=== PATIENT | male | born 1935 | race Two or more races ===

== ENCOUNTER 2021-04-16 11:03 | Inpatient (IN) | payer MEDICARE, MEDICAID ==
[~2021-04-16] VITALS: Ht 162.6 cm; Wt 68.8 kg
[2021-04-16] MEDS ORDERED: SODIUM CHLORIDE 0.9% 500 ML IV ONE (11:30)
[2021-04-16 12:15] LABS: Basophils # (auto) 0 10 ^3/uL (0-0.2); Eosinophils # (auto) 0 10 ^3/uL (0-0.8); Eosinophils % (auto) 0.1 % (0.0-7.0); Hematocrit 34.8 % (41.0-53.0); Lymphocytes # (auto) 0.6 10 ^3/uL (0.4-5.4); Lymphocytes % (auto) 9.7 % (10.0-50.0); Monocytes # (auto) 0.5 10 ^3/uL (0-1.3); Nucleated Red Blood Cells % 0.3 %
[2021-04-16 12:17] LABS: Basophils % (auto) 0.6 % (0.0-2.0); Hemoglobin 11.9 g/dL (13.5-17.5); Mean Corpuscular Hemoglobin 33.6 pg (28.0-32.0); Mean Corpuscular Hgb Conc. 34.1 g/dL (32.0-36.0); Mean Corpuscular Volume 98.5 fL (80.0-100.0); Monocytes % (auto) 7.9 % (0.0-12.0); Neutrophils # (auto) 4.8 10 ^3/uL (1.6-8.6); Neutrophils % (auto) 81.7 % (37.0-80.0); Red Blood Cells 3.53 10^6/uL (4.5-5.90); Red Cell Distribution Width 12.7 % (11.8-14.3); White Blood Cell 5.9 10^3/uL (4.4-10.8)
[2021-04-16 12:22] LABS: Albumin 2.9 g/dL (3.4-5.0); Anion Gap 15 (5-15); Blood Urea Nitrogen 23 mg/dL (7-18); Carbon Dioxide 19 mmol/L (21-32); Chloride 106 mmol/L (98-107); Glucose 110 mg/dL (74-106); Magnesium 2.8 mg/dL (1.6-2.6); Potassium 3.1 mmol/L (3.5-5.1); Sodium 140 mmol/L (136-145)
[2021-04-16 12:29] LABS: Alanine Aminotransferase 36 U/L (16-61); Alkaline Phosphatase 33 U/L (45-117); Aspartate Aminotransferase 34 U/L (15-37); BUN/Creatinine Ratio 29.9; Bilirubin, Total 1.2 mg/dL (0.2-1.0); Blood Alcohol < 3.0 mg/dL (0-5); GFR African American 124 mL/min; GFR Non-African American 102 mL/min; Total Protein 6.2 g/dL (6.4-8.2)
[2021-04-16] MEDS ORDERED: ONDANSETRON HCL 4 MG/2 ML VIAL IV PRN (16:45)
[2021-04-16] MEDS ORDERED: DOCUSATE SOD 100 MG CAP PO PRN (16:45)
[2021-04-16] MEDS ORDERED: MORPHINE SULFATE 4 MG/ML SYR/VIAL IV PRN (16:45)
[2021-04-16] MEDS ORDERED: NITROGLYCERIN 0.4 MG SL TAB SL PRN (16:45)
[2021-04-16] MEDS ORDERED: MORPHINE SULFATE INJECTION 2 MG/ML SYRG IV PRN (16:45)
[2021-04-16] MEDS ORDERED: ACETAMINOPHEN 325 MG TAB PO PRN (16:45)
[2021-04-16] MEDS ORDERED: HYDROcodone-ACET 5/325MG TAB PO PRN (16:45)
[2021-04-16] MEDS: POTASSIUM CHL 20MEQ/100ML 100 ML IV SCH ×2 (17:00→20:46)
[2021-04-16] MEDS: PANTOPRAZOLE 40 MG/10 ML VIAL INJ IV SCH (21:13)
[2021-04-16 22:50] VITALS: BP 104/56
[2021-04-16 23:34] VITALS: BP 104/56
[2021-04-17 05:00] VITALS: BP 100/61
[2021-04-17 06:40] LABS: Albumin 2.4 g/dL (3.4-5.0); BUN/Creatinine Ratio 22.7; Bilirubin, Total 1.2 mg/dL (0.2-1.0); Calcium 8.3 mg/dL (8.5-10.1); Total Protein 5.1 g/dL (6.4-8.2)
[2021-04-17 06:41] LABS: Basophils # (auto) 0 10 ^3/uL (0-0.2); Basophils % (auto) 0.1 % (0.0-2.0); Eosinophils # (auto) 0 10 ^3/uL (0-0.8); Eosinophils % (auto) 0.1 % (0.0-7.0); Hematocrit 30.2 % (41.0-53.0); Hemoglobin 10.2 g/dL (13.5-17.5); Lymphocytes # (auto) 0.1 10 ^3/uL (0.4-5.4); Lymphocytes % (auto) 4.3 % (10.0-50.0); Mean Corpuscular Hemoglobin 34.2 pg (28.0-32.0); Mean Corpuscular Hgb Conc. 33.7 g/dL (32.0-36.0); Mean Corpuscular Volume 101.4 fL (80.0-100.0); Monocytes # (auto) 0 10 ^3/uL (0-1.3); Monocytes % (auto) 0.6 % (0.0-12.0); Neutrophils # (auto) 2.5 10 ^3/uL (1.6-8.6); Neutrophils % (auto) 94.9 % (37.0-80.0); Red Blood Cells 2.98 10^6/uL (4.5-5.90); Red Cell Distribution Width 12.8 % (11.8-14.3); White Blood Cell 2.7 10^3/uL (4.4-10.8)
[2021-04-17 08:02] LABS: Potassium 2.4 mmol/L (3.5-5.1)
[2021-04-17 09:00] VITALS: BP 94/55
[2021-04-17] MEDS: POTASSIUM CHL 20MEQ/100ML 100 ML IV SCH ×2 (09:53→12:00)
[2021-04-17] MEDS: PANTOPRAZOLE 40 MG/10 ML VIAL INJ IV SCH (09:54)
[2021-04-17] MEDS: ENOXAPARIN SOD 40 MG/0.4 ML SYRINGE SC SCH (09:54)
[2021-04-17 13:00] VITALS: BP 100/52
[2021-04-17 16:08] LABS: BUN/Creatinine Ratio 14.6; Calcium 8.4 mg/dL (8.5-10.1)
[2021-04-17 17:00] VITALS: BP 116/54
[2021-04-17 17:47] LABS: Potassium 2.7 mmol/L (3.5-5.1)
[2021-04-17] MEDS ORDERED: POTASSIUM CHL 20MEQ/100ML 100 ML IV ONE (21:30)
[2021-04-17] MEDS ORDERED: SODIUM BICARBONATE 8.4 % INJ 50ML VIAL IV ONE (22:24)
[2021-04-17] MEDS: SODIUM CHLORIDE 0.9% 1,000 ML IV SCH (22:24)
[2021-04-18] MEDS ORDERED: POTASSIUM CHL 20MEQ/100ML 200 ML IV ONE (01:19)
[2021-04-18] MEDS: SODIUM CHLORIDE 0.9% 1,000 ML IV SCH ×2 (03:30→08:09)
[2021-04-18] MEDS ORDERED: SODIUM CHLORIDE 0.9% 500 ML IV ONE (06:45)
[2021-04-18 09:00] VITALS: BP 105/41
[2021-04-18] MEDS: ENOXAPARIN SOD 40 MG/0.4 ML SYRINGE SC SCH (09:49)
[2021-04-18] MEDS: PANTOPRAZOLE 40 MG/10 ML VIAL INJ IV SCH (09:49)
[2021-04-18 11:59] LABS: Hemoglobin 9.6 g/dL (13.5-17.5)
[2021-04-18 12:01] LABS: Hematocrit 28.2 % (41.0-53.0); Mean Corpuscular Hemoglobin 34.1 pg (28.0-32.0); Mean Corpuscular Hgb Conc. 34.1 g/dL (32.0-36.0); Red Blood Cells 2.82 10^6/uL (4.5-5.90); Red Cell Distribution Width 13.2 % (11.8-14.3); White Blood Cell 27.9 10^3/uL (4.4-10.8)
[2021-04-18 12:06] LABS: Basophils % (manual) 0 (0.0-2.0); Blast Cells 0; Eosinophils % (manual) 0 (0-7); Metamyelocytes % 0; Myelocytes % 0; Promyelocytes % 0; Reactive Lymphocytes 0
[2021-04-18 12:19] LABS: Albumin 2.2 g/dL (3.4-5.0); BUN/Creatinine Ratio 22.7; Calcium 8.3 mg/dL (8.5-10.1); Magnesium 2.1 mg/dL (1.6-2.6); Potassium 4.3 mmol/L (3.5-5.1)
[2021-04-18 12:25] LABS: Bilirubin, Total 1.5 mg/dL (0.2-1.0); Phosphorus 2.5 mg/dL (2.5-4.90)
[2021-04-18] MEDS ORDERED: D5W/SOD CHL 0.45% 1,000 ML IV SCH ×2 (12:45→19:15)
[2021-04-18 12:56] VITALS: BP 118/49
[2021-04-18 13:55] LABS: Band Neutrophils % (manual) 18; Lymphocytes % (manual) 3 (10.0-50.0); Monocytes % (manual) 1 (0-12)
[2021-04-18 15:12] LABS: Lactic Acid w/Reflex 4.1 mmol/L (0.4-2.0)
[2021-04-18] MEDS: AZITHROMYCIN 500MG/ 250ML 250 ML IV SCH (16:31)
[2021-04-18 17:00] VITALS: BP 94/39
[2021-04-18 17:03] LABS: Basophils # (auto) 0 10 ^3/uL (0-0.2); Basophils % (auto) 0.1 % (0.0-2.0); Eosinophils # (auto) 0 10 ^3/uL (0-0.8)
[2021-04-18 17:05] LABS: Hematocrit 27.3 % (41.0-53.0); Hemoglobin 9.2 g/dL (13.5-17.5); Lymphocytes # (auto) 0.7 10 ^3/uL (0.4-5.4); Lymphocytes % (auto) 2.6 % (10.0-50.0); Mean Corpuscular Hemoglobin 33.7 pg (28.0-32.0); Mean Corpuscular Hgb Conc. 33.7 g/dL (32.0-36.0); Mean Corpuscular Volume 99.8 fL (80.0-100.0); Monocytes # (auto) 0.5 10 ^3/uL (0-1.3); Monocytes % (auto) 1.8 % (0.0-12.0); Neutrophils # (auto) 24.6 10 ^3/uL (1.6-8.6); Neutrophils % (auto) 95.5 % (37.0-80.0); Red Blood Cells 2.74 10^6/uL (4.5-5.90); Red Cell Distribution Width 13.2 % (11.8-14.3); White Blood Cell 25.8 10^3/uL (4.4-10.8)
[2021-04-18] MEDS: PIPERACILLIN-TAZOB 3.375GM 100 ML IV SCH ×2 (19:23→21:27)
[2021-04-18 20:24] LABS: Urine Bacteria MOD /hpf (None Seen); Urine Blood 1+ /uL (Negative); Urine Mucus FEW (None Seen); Urine Specific Gravity 1.019 (1.001-1.035); Urine WBC 58 /hpf (0 - 3)
[2021-04-18 20:43] LABS: Alcohol, Urine < 3.0 mg/dL (0-10); Amphetamine Screen, Urine NEGATIVE (NEGATIVE); Barbiturate Scree,Urine NEGATIVE (NEGATIVE); Benzodiazephine Screen, Urine NEGATIVE (NEGATIVE); Cannabinoid Screen, Urine NEGATIVE (NEGATIVE); Cocaine Screen, Urine NEGATIVE (NEGATIVE); Opiate Scree,Urine NEGATIVE (NEGATIVE); Phencyclidine Screen, Urine NEGATIVE (NEGATIVE)
[2021-04-18 21:55] VITALS: BP 98/50
[2021-04-18] MEDS ORDERED: LORazepam 2MG/ML-1ML VIAL IV PRN (22:15)
[2021-04-19 05:15] VITALS: BP 137/54
[2021-04-19 05:36] LABS: Basophils # (auto) 0 10 ^3/uL (0-0.2); Basophils % (auto) 0.1 % (0.0-2.0); Eosinophils # (auto) 0 10 ^3/uL (0-0.8); Eosinophils % (auto) 0.1 % (0.0-7.0); Lymphocytes # (auto) 0.7 10 ^3/uL (0.4-5.4); Mean Corpuscular Hemoglobin 33.7 pg (28.0-32.0); Monocytes # (auto) 0.2 10 ^3/uL (0-1.3); Monocytes % (auto) 1.1 % (0.0-12.0); Nucleated Red Blood Cells % 0.1 %
[2021-04-19 05:38] LABS: Hemoglobin 9.1 g/dL (13.5-17.5); Lymphocytes % (auto) 3.6 % (10.0-50.0); Mean Corpuscular Hgb Conc. 33.9 g/dL (32.0-36.0); Mean Corpuscular Volume 99.6 fL (80.0-100.0); Neutrophils # (auto) 17.7 10 ^3/uL (1.6-8.6); Neutrophils % (auto) 95.1 % (37.0-80.0); Red Blood Cells 2.71 10^6/uL (4.5-5.90); Red Cell Distribution Width 13.1 % (11.8-14.3); White Blood Cell 18.6 10^3/uL (4.4-10.8)
[2021-04-19 05:54] LABS: Albumin 1.8 g/dL (3.4-5.0); Calcium 7.8 mg/dL (8.5-10.1); Magnesium 2.1 mg/dL (1.6-2.6); Potassium 3.6 mmol/L (3.5-5.1)
[2021-04-19 06:03] LABS: BUN/Creatinine Ratio 24.2; Bilirubin, Total 1.3 mg/dL (0.2-1.0); Total Protein 4.6 g/dL (6.4-8.2)
[2021-04-19] MEDS: PIPERACILLIN-TAZOB 3.375GM 100 ML IV SCH (06:19)
[2021-04-19] MEDS: PANTOPRAZOLE 40 MG/10 ML VIAL INJ IV SCH (11:11)
[2021-04-19] MEDS: AZITHROMYCIN 500MG/ 250ML 250 ML IV SCH (11:13)
[2021-04-19] MEDS: FOLIC ACID 1 MG, MULTIPLE VITAMIN 10 ML, MAGNESIUM SULF SDV 50% 8 MEQ, THIAMINE INJ 100... INJ SCH ×5 (11:15)
[2021-04-19] MEDS: D5W/SOD CHL 0.45% 1,000 ML IV SCH ×2 (15:51→19:23)
[2021-04-19] MEDS: PIPERACILLIN-TAZOB 2.25GM 50 ML IV SCH ×2 (17:53→23:21)
[2021-04-19 22:00] VITALS: BP 91/52
[2021-04-20 05:00] VITALS: BP 96/51
[2021-04-20 05:49] LABS: Basophils # (auto) 0 10 ^3/uL (0-0.2); Basophils % (auto) 0.2 % (0.0-2.0); Eosinophils # (auto) 0.1 10 ^3/uL (0-0.8); Monocytes # (auto) 0.2 10 ^3/uL (0-1.3); Nucleated Red Blood Cells % 0.1 %; Red Cell Distribution Width 13.1 % (11.8-14.3); White Blood Cell 11.7 10^3/uL (4.4-10.8)
[2021-04-20 05:51] LABS: Eosinophils % (auto) 1.1 % (0.0-7.0); Hematocrit 25.6 % (41.0-53.0); Hemoglobin 8.8 g/dL (13.5-17.5); Lymphocytes # (auto) 1.5 10 ^3/uL (0.4-5.4); Lymphocytes % (auto) 12.8 % (10.0-50.0); Mean Corpuscular Hemoglobin 33.9 pg (28.0-32.0); Mean Corpuscular Hgb Conc. 34.4 g/dL (32.0-36.0); Mean Corpuscular Volume 98.7 fL (80.0-100.0); Monocytes % (auto) 1.9 % (0.0-12.0); Neutrophils # (auto) 9.8 10 ^3/uL (1.6-8.6); Red Blood Cells 2.59 10^6/uL (4.5-5.90)
[2021-04-20] MEDS: PIPERACILLIN-TAZOB 2.25GM 50 ML IV SCH ×2 (05:51→13:35)
[2021-04-20] MEDS: D5W/SOD CHL 0.45% 1,000 ML IV SCH ×4 (06:00→20:50)
[2021-04-20 06:07] LABS: Calcium 7.7 mg/dL (8.5-10.1); Potassium 3.3 mmol/L (3.5-5.1)
[2021-04-20 06:10] LABS: Albumin 1.7 g/dL (3.4-5.0); Magnesium 2.2 mg/dL (1.6-2.6); Total Protein 4.3 g/dL (6.4-8.2)
[2021-04-20] MEDS ORDERED: POTASSIUM CHL 20MEQ/100ML 100 ML IV SCH (08:00)
[2021-04-20 08:30] VITALS: BP 79/39
[2021-04-20] MEDS: POTASSIUM CHL 20MEQ/100ML 100 ML IV SCH ×2 (09:34→11:09)
[2021-04-20] MEDS: ALBUMIN 25% 100 ML IV SCH ×3 (09:34→23:05)
[2021-04-20] MEDS: AZITHROMYCIN 500MG/ 250ML 250 ML IV SCH (09:34)
[2021-04-20] MEDS: PANTOPRAZOLE 40 MG/10 ML VIAL INJ IV SCH (09:34)
[2021-04-20 10:43] VITALS: BP 110/47
[2021-04-20 10:47] LABS: INR 1.7 (0.9-1.15)
[2021-04-20 11:15] LABS: Folate (Folic Acid) 4.62 ng/mL (5.38-24)
[2021-04-20 12:30] VITALS: BP 98/44
[2021-04-20] MEDS: FOLIC ACID 1 MG, MULTIPLE VITAMIN 10 ML, MAGNESIUM SULF SDV 50% 8 MEQ, THIAMINE INJ 100... INJ SCH ×5 (13:34)
[2021-04-20 17:00] VITALS: BP 100/53
[2021-04-20 22:00] VITALS: BP 141/75
[2021-04-20] MEDS: PIPERACILLIN-TAZOB 3.375GM 100 ML IV SCH (22:30)
[2021-04-21] VITALS (7 sets, daily range): BP systolic 121–137; BP diastolic 57–85
[2021-04-21] MEDS: D5W/SOD CHL 0.45% 1,000 ML IV SCH ×3 (05:28→17:40)
[2021-04-21] MEDS: PIPERACILLIN-TAZOB 3.375GM 100 ML IV SCH ×3 (05:48→21:43)
[2021-04-21 06:49] LABS: Basophils # (auto) 0 10 ^3/uL (0-0.2); Lymphocytes # (auto) 1.5 10 ^3/uL (0.4-5.4); Mean Corpuscular Hemoglobin 34.4 pg (28.0-32.0); Monocytes # (auto) 0.3 10 ^3/uL (0-1.3); Nucleated Red Blood Cells % 0.3 %; Red Cell Distribution Width 13.3 % (11.8-14.3); White Blood Cell 6.3 10^3/uL (4.4-10.8)
[2021-04-21 06:51] LABS: Basophils % (auto) 0.3 % (0.0-2.0); Eosinophils # (auto) 0.1 10 ^3/uL (0-0.8); Eosinophils % (auto) 2.3 % (0.0-7.0); Hematocrit 22.3 % (41.0-53.0); Hemoglobin 7.7 g/dL (13.5-17.5); Mean Corpuscular Hgb Conc. 34.7 g/dL (32.0-36.0); Mean Corpuscular Volume 99.2 fL (80.0-100.0); Monocytes % (auto) 4.2 % (0.0-12.0); Neutrophils # (auto) 4.4 10 ^3/uL (1.6-8.6); Neutrophils % (auto) 69.2 % (37.0-80.0); Red Blood Cells 2.25 10^6/uL (4.5-5.90)
[2021-04-21 07:02] LABS: Albumin 2.5 g/dL (3.4-5.0); Calcium 7.9 mg/dL (8.5-10.1); Potassium 3.3 mmol/L (3.5-5.1)
[2021-04-21 07:07] LABS: BUN/Creatinine Ratio 15.1; Bilirubin, Total 1.2 mg/dL (0.2-1.0); Total Protein 4.8 g/dL (6.4-8.2)
[2021-04-21 07:16] LABS: % Iron Saturation 45.4 % (20-55)
[2021-04-21] MEDS: PANTOPRAZOLE 40 MG/10 ML VIAL INJ IV SCH (09:11)
[2021-04-21] MEDS: AZITHROMYCIN 500MG/ 250ML 250 ML IV SCH (09:13)
[2021-04-21] MEDS: FOLIC ACID 1 MG, MULTIPLE VITAMIN 10 ML, MAGNESIUM SULF SDV 50% 8 MEQ, THIAMINE INJ 100... INJ SCH ×5 (12:44)
[2021-04-21] MEDS ORDERED: POTASSIUM CHL 20 Meq TABLET PO ONE (13:15)
[2021-04-21] MEDS ORDERED: POTASSIUM CHL 20MEQ/100ML 100 ML IV ONE (14:45)
[2021-04-22] VITALS (7 sets, daily range): BP systolic 102–134; BP diastolic 52–75
[2021-04-22] MEDS: D5W/SOD CHL 0.45% 1,000 ML IV SCH ×4 (04:09→21:33)
[2021-04-22] MEDS: PIPERACILLIN-TAZOB 3.375GM 100 ML IV SCH ×3 (05:56→21:33)
[2021-04-22 07:38] LABS: Albumin 2.1 g/dL (3.4-5.0); Calcium 7.7 mg/dL (8.5-10.1); Magnesium 2.1 mg/dL (1.6-2.6)
[2021-04-22 07:43] LABS: BUN/Creatinine Ratio 12.5; Bilirubin, Total 0.9 mg/dL (0.2-1.0); Total Protein 4.6 g/dL (6.4-8.2)
[2021-04-22] MEDS: AZITHROMYCIN 500MG/ 250ML 250 ML IV SCH (09:03)
[2021-04-22] MEDS: PANTOPRAZOLE 40 MG/10 ML VIAL INJ IV SCH (09:03)
[2021-04-22 09:56] LABS: Basophils # (auto) 0 10 ^3/uL (0-0.2); Eosinophils # (auto) 0.2 10 ^3/uL (0-0.8); Eosinophils % (auto) 2.8 % (0.0-7.0); Nucleated Red Blood Cells % 1.6 %; Red Blood Cells 2.33 10^6/uL (4.5-5.90)
[2021-04-22 09:58] LABS: Basophils % (auto) 0.5 % (0.0-2.0); Hematocrit 23.1 % (41.0-53.0); Hemoglobin 7.8 g/dL (13.5-17.5); Lymphocytes # (auto) 1.5 10 ^3/uL (0.4-5.4); Lymphocytes % (auto) 24.8 % (10.0-50.0); Mean Corpuscular Hemoglobin 33.5 pg (28.0-32.0); Mean Corpuscular Hgb Conc. 33.8 g/dL (32.0-36.0); Mean Corpuscular Volume 99.3 fL (80.0-100.0); Monocytes # (auto) 0.5 10 ^3/uL (0-1.3); Monocytes % (auto) 8.5 % (0.0-12.0); Neutrophils # (auto) 3.9 10 ^3/uL (1.6-8.6); Neutrophils % (auto) 63.4 % (37.0-80.0); White Blood Cell 6.1 10^3/uL (4.4-10.8)
[2021-04-22] MEDS: FOLIC ACID 1 MG, MULTIPLE VITAMIN 10 ML, MAGNESIUM SULF SDV 50% 8 MEQ, THIAMINE INJ 100... INJ SCH ×5 (14:57)
[2021-04-22] MEDS: POTASSIUM CHL 20MEQ/100ML 100 ML IV SCH ×2 (18:33→22:06)
[2021-04-23] VITALS (9 sets, daily range): BP systolic 94–118; BP diastolic 35–66
[2021-04-23] MEDS: D5W/SOD CHL 0.45% 1,000 ML IV SCH ×2 (05:32→18:34)
[2021-04-23 05:36] LABS: Basophils # (auto) 0 10 ^3/uL (0-0.2); Eosinophils # (auto) 0.2 10 ^3/uL (0-0.8); Lymphocytes # (auto) 1.4 10 ^3/uL (0.4-5.4); Lymphocytes % (auto) 21.9 % (10.0-50.0); Monocytes # (auto) 0.7 10 ^3/uL (0-1.3); Neutrophils # (auto) 4.1 10 ^3/uL (1.6-8.6); White Blood Cell 6.3 10^3/uL (4.4-10.8)
[2021-04-23 05:37] LABS: Basophils % (auto) 0.6 % (0.0-2.0); Eosinophils % (auto) 2.4 % (0.0-7.0); Hematocrit 25.1 % (41.0-53.0); Hemoglobin 8.4 g/dL (13.5-17.5); Mean Corpuscular Hemoglobin 33.6 pg (28.0-32.0); Mean Corpuscular Hgb Conc. 33.6 g/dL (32.0-36.0); Monocytes % (auto) 10.5 % (0.0-12.0); Neutrophils % (auto) 64.6 % (37.0-80.0); Red Blood Cells 2.51 10^6/uL (4.5-5.90)
[2021-04-23 05:51] LABS: Calcium 7.6 mg/dL (8.5-10.1); Magnesium 2.3 mg/dL (1.6-2.6); Potassium 3.2 mmol/L (3.5-5.1)
[2021-04-23 05:56] LABS: BUN/Creatinine Ratio 8.6; Bilirubin, Total 0.8 mg/dL (0.2-1.0); Total Protein 4.6 g/dL (6.4-8.2)
[2021-04-23] MEDS: PIPERACILLIN-TAZOB 3.375GM 100 ML IV SCH ×3 (06:06→21:38)
[2021-04-23] MEDS: PANTOPRAZOLE 40 MG/10 ML VIAL INJ IV SCH (11:01)
[2021-04-23] MEDS: AZITHROMYCIN 500MG/ 250ML 250 ML IV SCH (11:31)
[2021-04-23] MEDS: POTASSIUM CHL 20MEQ/100ML 100 ML IV SCH ×2 (12:17→14:25)
[2021-04-23 12:53] LABS: Hepatitis A Ab IgM Negative
[2021-04-23 13:17] LABS: Hepatitis B Core IgM Negative
[2021-04-23] MEDS: FOLIC ACID 1 MG, MULTIPLE VITAMIN 10 ML, MAGNESIUM SULF SDV 50% 8 MEQ, THIAMINE INJ 100... INJ SCH ×5 (13:43)
[2021-04-23 13:58] LABS: Hepatitis C Antibody Positive (Negative)
[2021-04-23 14:20] LABS: Basophils # (auto) 0 10 ^3/uL (0-0.2); Eosinophils # (auto) 0.2 10 ^3/uL (0-0.8); Hemoglobin 7.4 g/dL (13.5-17.5); Lymphocytes # (auto) 1.3 10 ^3/uL (0.4-5.4); Monocytes # (auto) 0.8 10 ^3/uL (0-1.3); Monocytes % (auto) 11.6 % (0.0-12.0); Neutrophils # (auto) 4.4 10 ^3/uL (1.6-8.6)
[2021-04-23 14:24] LABS: Basophils % (auto) 0.5 % (0.0-2.0); Eosinophils % (auto) 3.5 % (0.0-7.0); Hematocrit 21.3 % (41.0-53.0); Mean Corpuscular Hemoglobin 34.3 pg (28.0-32.0); Mean Corpuscular Hgb Conc. 34.8 g/dL (32.0-36.0); Mean Corpuscular Volume 98.6 fL (80.0-100.0); Neutrophils % (auto) 65.4 % (37.0-80.0); Nucleated Red Blood Cells % 1.2 %; Red Blood Cells 2.16 10^6/uL (4.5-5.90); Red Cell Distribution Width 13.2 % (11.8-14.3); White Blood Cell 6.7 10^3/uL (4.4-10.8)
[2021-04-24] VITALS (7 sets, daily range): BP systolic 85–102; BP diastolic 41–59
[2021-04-24] MEDS: D5W/SOD CHL 0.45% 1,000 ML IV SCH ×2 (05:56→16:38)
[2021-04-24] MEDS: PIPERACILLIN-TAZOB 3.375GM 100 ML IV SCH ×3 (05:57→22:16)
[2021-04-24 07:07] LABS: Basophils # (auto) 0 10 ^3/uL (0-0.2); Basophils % (auto) 0.5 % (0.0-2.0); Eosinophils # (auto) 0.2 10 ^3/uL (0-0.8); Hemoglobin 8.4 g/dL (13.5-17.5)
[2021-04-24 07:10] LABS: Eosinophils % (auto) 3.8 % (0.0-7.0); Hematocrit 24.5 % (41.0-53.0); Lymphocytes % (auto) 22.3 % (10.0-50.0); Mean Corpuscular Hemoglobin 33.9 pg (28.0-32.0); Mean Corpuscular Hgb Conc. 34.3 g/dL (32.0-36.0); Monocytes # (auto) 0.6 10 ^3/uL (0-1.3); Monocytes % (auto) 13.3 % (0.0-12.0); Neutrophils # (auto) 2.8 10 ^3/uL (1.6-8.6); Neutrophils % (auto) 60.1 % (37.0-80.0); Red Blood Cells 2.48 10^6/uL (4.5-5.90); Red Cell Distribution Width 13.2 % (11.8-14.3); White Blood Cell 4.6 10^3/uL (4.4-10.8)
[2021-04-24 07:16] LABS: Calcium 7.7 mg/dL (8.5-10.1); Potassium 3.4 mmol/L (3.5-5.1)
[2021-04-24 07:20] LABS: BUN/Creatinine Ratio 7.2; Bilirubin, Total 0.7 mg/dL (0.2-1.0); Total Protein 4.6 g/dL (6.4-8.2)
[2021-04-24] MEDS: PANTOPRAZOLE 40 MG/10 ML VIAL INJ IV SCH (10:14)
[2021-04-24] MEDS: AZITHROMYCIN 500MG/ 250ML 250 ML IV SCH (10:21)
[2021-04-24] MEDS: FOLIC ACID 1 MG, MULTIPLE VITAMIN 10 ML, MAGNESIUM SULF SDV 50% 8 MEQ, THIAMINE INJ 100... INJ SCH ×5 (13:00)
[2021-04-24] MEDS ORDERED: ALBUTEROL SULF 2.5 MG/0.5ML(0.5%) NEB SOLN NEB PRN (16:30)
[2021-04-25] MEDS: D5W/SOD CHL 0.45% 1,000 ML IV SCH ×3 (02:00→22:01)
[2021-04-25 05:00] VITALS: BP 103/47
[2021-04-25] MEDS: PIPERACILLIN-TAZOB 3.375GM 100 ML IV SCH ×3 (05:31→21:50)
[2021-04-25 08:00] VITALS: BP 112/58
[2021-04-25 09:00] VITALS: BP 112/58
[2021-04-25] MEDS: PANTOPRAZOLE 40 MG/10 ML VIAL INJ IV SCH (09:59)
[2021-04-25] MEDS: AZITHROMYCIN 500MG/ 250ML 250 ML IV SCH (10:00)
[2021-04-25 13:00] VITALS: BP 78/48
[2021-04-25] MEDS: FOLIC ACID 1 MG, MULTIPLE VITAMIN 10 ML, MAGNESIUM SULF SDV 50% 8 MEQ, THIAMINE INJ 100... INJ SCH ×5 (13:17)
[2021-04-25 17:20] VITALS: BP 113/54
[2021-04-25 22:30] VITALS: BP 120/69
[2021-04-26] MEDS: PIPERACILLIN-TAZOB 3.375GM 100 ML IV SCH ×3 (05:19→21:04)
[2021-04-26 05:30] VITALS: BP 119/65
[2021-04-26 05:43] LABS: Albumin 1.8 g/dL (3.4-5.0); Calcium 7.5 mg/dL (8.5-10.1); Potassium 3.1 mmol/L (3.5-5.1)
[2021-04-26 05:49] LABS: BUN/Creatinine Ratio 8.5; Bilirubin, Total 0.6 mg/dL (0.2-1.0); Total Protein 4.4 g/dL (6.4-8.2)
[2021-04-26 08:00] VITALS: BP 130/66
[2021-04-26 09:00] VITALS: BP 130/66
[2021-04-26] MEDS: D5W/SOD CHL 0.45% 1,000 ML IV SCH ×2 (09:26→17:46)
[2021-04-26] MEDS: AZITHROMYCIN 500MG/ 250ML 250 ML IV SCH (09:26)
[2021-04-26] MEDS: PANTOPRAZOLE 40 MG/10 ML VIAL INJ IV SCH (09:26)
[2021-04-26 12:30] LABS: Basophils # (auto) 0 10 ^3/uL (0-0.2); Eosinophils # (auto) 0.1 10 ^3/uL (0-0.8); Hemoglobin 7.8 g/dL (13.5-17.5); Lymphocytes # (auto) 0.5 10 ^3/uL (0.4-5.4); Monocytes # (auto) 0.4 10 ^3/uL (0-1.3)
[2021-04-26 12:37] LABS: Basophils % (auto) 0.7 % (0.0-2.0); Eosinophils % (auto) 2.5 % (0.0-7.0); Hematocrit 22.7 % (41.0-53.0); Lymphocytes % (auto) 17.2 % (10.0-50.0); Mean Corpuscular Hemoglobin 34.5 pg (28.0-32.0); Mean Corpuscular Hgb Conc. 34.4 g/dL (32.0-36.0); Mean Corpuscular Volume 100.2 fL (80.0-100.0); Monocytes % (auto) 12.8 % (0.0-12.0); Neutrophils # (auto) 2.1 10 ^3/uL (1.6-8.6); Neutrophils % (auto) 66.8 % (37.0-80.0); Red Blood Cells 2.27 10^6/uL (4.5-5.90); Red Cell Distribution Width 13.9 % (11.8-14.3); White Blood Cell 3.1 10^3/uL (4.4-10.8)
[2021-04-26] MEDS: FOLIC ACID 1 MG, MULTIPLE VITAMIN 10 ML, MAGNESIUM SULF SDV 50% 8 MEQ, THIAMINE INJ 100... INJ SCH ×5 (12:40)
[2021-04-26] MEDS: POTASSIUM CHL 20MEQ/100ML 100 ML IV SCH ×2 (15:38→17:41)
[2021-04-27 04:48] VITALS: BP 135/64
[2021-04-27] MEDS: PIPERACILLIN-TAZOB 3.375GM 100 ML IV SCH ×3 (05:16→21:45)
[2021-04-27] MEDS: D5W/SOD CHL 0.45% 1,000 ML IV SCH ×3 (05:16→21:50)
[2021-04-27 09:00] VITALS: BP 154/115
[2021-04-27] MEDS: PANTOPRAZOLE 40 MG/10 ML VIAL INJ IV SCH (09:34)
[2021-04-27] MEDS: AZITHROMYCIN 500MG/ 250ML 250 ML IV SCH (09:35)
[2021-04-27 13:00] VITALS: BP 135/71
[2021-04-27] MEDS: FOLIC ACID 1 MG, MULTIPLE VITAMIN 10 ML, MAGNESIUM SULF SDV 50% 8 MEQ, THIAMINE INJ 100... INJ SCH ×5 (13:18)
[2021-04-27 16:58] VITALS: BP 141/81
[2021-04-27 20:00] VITALS: BP 118/76
[2021-04-27 22:00] VITALS: BP 118/76
[2021-04-28 05:00] VITALS: BP 148/70
[2021-04-28] MEDS: PIPERACILLIN-TAZOB 3.375GM 100 ML IV SCH ×3 (05:48→21:39)
[2021-04-28] MEDS: D5W/SOD CHL 0.45% 1,000 ML IV SCH (05:52)
[2021-04-28] MEDS: PANTOPRAZOLE 40 MG/10 ML VIAL INJ IV SCH (10:10)
[2021-04-28] MEDS: AZITHROMYCIN 500MG/ 250ML 250 ML IV SCH (10:11)
[2021-04-28] MEDS: FOLIC ACID 1 MG, MULTIPLE VITAMIN 10 ML, MAGNESIUM SULF SDV 50% 8 MEQ, THIAMINE INJ 100... INJ SCH ×5 (12:39)
[2021-04-28] MEDS ORDERED: D5W/SOD CHL 0.45% 1,000 ML IV SCH (21:30)
[2021-04-28 22:00] VITALS: BP 148/77
[2021-04-29 05:00] VITALS: BP 144/70
[2021-04-29] MEDS: PIPERACILLIN-TAZOB 3.375GM 100 ML IV SCH ×3 (05:51→21:51)
[2021-04-29] MEDS ORDERED: FUROSEMIDE 20 MG/2 ML VIAL IV ONE (08:00)
[2021-04-29 09:00] VITALS: BP 96/53
[2021-04-29] MEDS: PANTOPRAZOLE 40 MG/10 ML VIAL INJ IV SCH (09:50)
[2021-04-29] MEDS: AZITHROMYCIN 500MG/ 250ML 250 ML IV SCH (09:51)
[2021-04-29 13:00] VITALS: BP 144/57
[2021-04-29 17:00] VITALS: BP 138/64
[2021-04-29] MEDS: FOLIC ACID 1 MG, MULTIPLE VITAMIN 10 ML, MAGNESIUM SULF SDV 50% 8 MEQ, THIAMINE INJ 100... INJ SCH ×5 (18:53)
[2021-04-29 22:00] VITALS: BP 122/58
[2021-04-30 05:00] VITALS: BP 113/75
[2021-04-30] MEDS: PIPERACILLIN-TAZOB 3.375GM 100 ML IV SCH ×2 (06:41→18:56)
[2021-04-30 09:00] VITALS: BP 144/84
[2021-04-30] MEDS: AZITHROMYCIN 500MG/ 250ML 250 ML IV SCH (10:03)
[2021-04-30] MEDS: FOLIC ACID 1 MG, MULTIPLE VITAMIN 10 ML, MAGNESIUM SULF SDV 50% 8 MEQ, THIAMINE INJ 100... INJ SCH ×5 (12:42)
[2021-04-30 13:00] VITALS: BP 126/88
[2021-04-30 17:00] VITALS: BP 119/90
== END 2021-04-30 20:23 | DRG 871 ==
LOC: ER 11:03 → EDBD 11:03 → TELE 16:36 → TELE-WESTW 22:23
PROVIDERS: ADMIT Nurse Practitioner; ATTEND Nurse Practitioner
PROC: 05HB33Z Insertion of Infusion Device into Right Basilic Vein, Percutaneous Approach (ICD-10-PCS; principal; 2021-04-20)
PROC: B54MZZA Ultrasonography of Right Upper Extremity Veins, Guidance (ICD-10-PCS; 2021-04-20)
PROC: 30233R1 Transfusion of Nonautologous Platelets into Peripheral Vein, Percutaneous Approach (ICD-10-PCS; 2021-04-23)
DX: A41.9 Sepsis, unspecified organism (principal); N17.0 Acute kidney failure with tubular necrosis; G93.41 Metabolic encephalopathy; J96.00 Acute respiratory failure, unspecified whether with hypoxia or hypercapnia; E87.0 Hyperosmolality and hypernatremia; S22.41XA Multiple fractures of ribs, right side, initial encounter for closed fracture; N39.0 Urinary tract infection, site not specified; J98.11 Atelectasis; E87.2 Acidosis; F03.90 Unspecified dementia, unspecified severity, without behavioral disturbance, psychotic disturbance, mood disturbance, and anxiety; E87.6 Hypokalemia; F10.10 Alcohol abuse, uncomplicated; E86.0 Dehydration; D64.9 Anemia, unspecified; E11.9 Type 2 diabetes mellitus without complications; D69.6 Thrombocytopenia, unspecified; F17.210 Nicotine dependence, cigarettes, uncomplicated; I10 Essential (primary) hypertension; I48.91 Unspecified atrial fibrillation; J43.9 Emphysema, unspecified; K70.9 Alcoholic liver disease, unspecified; R13.10 Dysphagia, unspecified; S50.812A Abrasion of left forearm, initial encounter; E87.8 Other disorders of electrolyte and fluid balance, not elsewhere classified; J47.9 Bronchiectasis, uncomplicated; R74.8 Abnormal levels of other serum enzymes; B19.20 Unspecified viral hepatitis C without hepatic coma; W18.39XA Other fall on same level, initial encounter; Y93.89 Activity, other specified; Y92.89 Other specified places as the place of occurrence of the external cause; Z83.3 Family history of diabetes mellitus; Z91.81 History of falling; Y99.8 Other external cause status; E53.8 Deficiency of other specified B group vitamins
CPT/HCPCS: 36415; 36600; 70450; 70551; 71045; 71250; 72125; 76705; 80048; 80053; 80074; 80307; 80320; 81001; 82140; 82550; 82607; 82728; 82746; 82805; 83540; 83550; 83605; 83615; 83690; 83735; 84100; 84443; 84484; 85007; 85025; 85027; 85362; 85610; 86038; 86850; 86880; 86900; 86901; 87040; 87086; 87088; 87186; 87426; 92507; 92610; 93005; 93306; 95819; 96361; 96365; 96366; 97110; 97116; 97163; 97530; C9113; G0378; J2543; J3480; P9047